=== PATIENT | female | born 1995 | race Caucasian/White ===

== ENCOUNTER → 2016-06-21 | Outpatient (CLI) | payer BC | END | disposition home or self-care (01) | LOC: C.PAPS 09:54 | PROVIDERS: ATTEND Obstetrics & Gynecology | DX: Z01.419 Encounter for gynecological examination (general) (routine) without abnormal findings (principal) ==

== ENCOUNTER 2019-10-15 10:24 | Observation (INO) ==
--- NOTE | 2019-10-12 08:38 | Anesthesiology Consultation ---
Date of Service October 12, 2019 Assessment & Plan (1) Encounter for pre-operative examination: Chart Review Chart Review: Acceptable Risk for Surgery and Patient NOT seen in Pre Admission Testing Per nursing assessment 10/10/19, pt resides in [facility]. Works in [employer] but wears mask. Traveled to [facility] but wore mask. Covid testing done 10/09/19 at [facility]= results negative History Surgery Operation Date: 10/15/19 11:50 Proposed Procedures p Bilateral Reduction Mammoplasty - Chantel Oates MD Height/Weight Height: 5 ft 8 in Weight: 72.575 kg Allergies Allergy/AdvReac Type Severity Reaction Status Date / Time No Known Allergies Allergy Verified 10/10/19 12:16 Medications Home Medications Medication Instructions Recorded Confirmed Last Taken oxycodone-acetaminophen 5 mg-325 1 tab PO Q4H PRN #18 tab 10/08/19 10/10/19 Unknown mg tablet multivitamin with minerals 1 tab PO QAM 10/10/19 10/10/19 Unknown [Hair,Skin and Nails] norethindrone-e.estradiol-iron 1 tab PO HS 10/10/19 10/10/19 Unknown Past Medical History Medical History Anxiety no meds H/O: depression no meds Vaginismus Past Family History Family History Mother Alcoholism Depression Father Alcoholism Kidney stone on left side Grandmother (Maternal) Cervical cancer Type 2 diabetes mellitus Hypertension Family history of diabetes mellitus Grandfather (Maternal) Hypertension Other No family history of adverse response to anesthesia Denies family history of Pancreatic cancer Ovarian cancer Prostate cancer Breast cancer Colorectal cancer Uterine cancer Past Surgical History Surgical History (Updated 10/12/19 @ 08:38 by Jackie Barraza RN) History of wisdom tooth extraction Nausea and vomiting after administration of anesthetic agent Social History Smoking Status: Never smoker Do You Dip or Chew Tobacco: No Hx Alcohol Use: No Hx Substance Use: No substance use type: does not use Testing Laboratory Results 10/10/19= WBC: 6.35 H/H: 12.9/37.5 PLATELETS: 196 SODIUM: 137 POTASSIUM: 4.0 CHLORIDE: 107 CO2: 27.0 BUN: 11.0 CREATININE: 1.00 GLUCOSE: 101 PT: 11.6 PTT: 28.9 INR: 1.01
[~2019-10-15 10:24] MED LIST: BUPIVACAINE 0.25% 30 ML VIAL ONE; CEFAZOLIN 2000MG 2,000 MG/15 ML SYR IV SCH; LR 15ML/HR IV SCH; MIDAZOLAM HCL 1 MG/ML 2ML VIAL ONE; fentaNYL citrate 100 MCG/2 ML VIAL ONE
[2019-10-15] MEDS ORDERED: ePHEDrine sulfate 50 MG/ML AMP IV PRN (11:20)
[2019-10-15] MEDS ORDERED: HYDROmorphone INJ 2 MG/ML SYR/VIAL IV PRN (11:20)
[2019-10-15] MEDS ORDERED: ONDANSETRON INJ 2 MG/ML 2 ML VIAL IV PRN (11:20)
[2019-10-15] MEDS ORDERED: ATROPINE SULFATE 0.1 MG/ML 10ML SYR IV PRN (11:20)
[2019-10-15] MEDS ORDERED: MIDAZOLAM HCL 1 MG/ML 2ML VIAL ONE (11:27)
[2019-10-15] MEDS ORDERED: ROCURONIUM BROMIDE 10 MG/ML 5 ML VIAL IV ONE (11:44)
[2019-10-15] MEDS ORDERED: PROPOFOL IV EMULSION 10 MG/ML 20 ML VIAL IV ONE (11:44)
[2019-10-15] MEDS ORDERED: LIDOCAINE HCL 2% 2 ML VIAL/AMP(20MG/ML) INFIL ONE (11:45)
--- NOTE | 2019-10-15 12:02 | History & Physical Bridge Note ---
Date of Service October 15, 2019 History & Physical Bridge Note I have examined the patient, reviewed the History & Physical and in the interval since the performance of the History & Physical I have noted the following changes of clinical significance: no changes noted
[2019-10-15] MEDS ORDERED: BUPIVACAINE 0.25% 30 ML VIAL ONE (12:10)
[2019-10-15] MEDS ORDERED: LIDOCAINE/EPINEPHRINE 1% 20 ML VIAL ONE (12:10)
[2019-10-15] MEDS ORDERED: fentaNYL citrate 100 MCG/2 ML VIAL ONE ×2 (12:59→15:43)
[2019-10-15] MEDS ORDERED: LIDO/EPINEPHRINE/SOD BICARB 20 ML VIAL INFIL ONE (14:33)
[2019-10-15] MEDS ORDERED: ONDANSETRON INJ 2 MG/ML 2 ML VIAL ONE (14:40)
[2019-10-15] MEDS ORDERED: GLYCOPYRROLATE 0.2 MG/ML VIAL ONE (15:34)
[2019-10-15] MEDS ORDERED: NEOSTIGMINE METHYLSULFATE 5 MG/5 ML SYR ONE (15:34)
--- NOTE | 2019-10-15 16:10 | Post Operative Brief Note ---
PG Immediate Post Op with CF Date of Surgery October 15, 2019 Pre & Post Diagnosis Operation Date: 10/15/19 11:50 Pre-Op Diagnosis: Symptomatic Bilateral Macromastia Post-Op Diagnosis: Symptomatic Bilateral Macromastia I identified the patient and participated in the time-out.: Yes Procedure Operation Date: 10/15/19 11:50 Actual Procedures p Bilateral Breast Reduction (Bilateral) - Chantel Oates MD Surgeon Chantel Oates MD Quality Rn Vero Everett PA-C Estimated Blood Loss 75 Findings Consistent with Post-Op Diagnosis Specimens Specimen Description: Fresh Specimen: A.) Left Breast Tissue - 454 grams Fresh Specimen: B.) Right Breast Tissue - 488 grams Drains Neymar-Machado Drain (x2)
--- NOTE | 2019-10-15 16:12 | Operative Report ---
PG Post Operative Report Pre & Post Diagnosis Operation Date: 10/15/19 11:50 Pre-Op Diagnosis: Symptomatic Bilateral Macromastia Post-Op Diagnosis: Symptomatic Bilateral Macromastia I identified the patient and participated in the time-out.: Yes Procedure Operation Date: 10/15/19 11:50 Actual Procedures p Bilateral Breast Reduction (Bilateral) - Chantel Oates MD Surgeon Chantel Oates MD Protective Clothing Issuer Vero Everett PA-C Estimated Blood Loss 75 Findings Consistent with Post-Op Diagnosis Specimens left breast tissue 454 grams to pathology right breast tissue 488 grams to pathology Drains JPx2 Anesthesia Type General Regional Complications none Disposition Disposition: Recovery Room Indications back, neck and shoulder pain due to macromastia Description of Procedure The risks, benefits, and alternatives of the procedure were explained to the patient who agreed and signed consent. She was identified and marked in the preoperative holding area. She was brought to the operating room where she was positioned supine and placed under general anesthesia without incident. Surgical site was prepped and draped sterilely. A time-out procedure was performed. I began with the left side. Markings were reassessed and a 7 cm pedicle was marked. 1% lidocaine with epinephrine was used to anesthetize the planned incisions. A 38 mm cookie cutter was used to circumscribe the nipple-areolar complex. The previously marked 7 cm pedicle was incised using a 15 blade scalpel and deepithelialized. I began with the medial dissection of the pedicle using electrocautery. Cautery was used to incise through dermis and breast parenchyma down to the chest wall, taking care not to undermine the pedicle during dissection. A similar procedure was undertaken on the lateral aspect of the pedicle again taking care not to undermine. Lastly, the pedicle was dissected out superiorly using electrocautery and this was carried down to the chest wall as well. I then began with excision of the medial breast tissue followed by lateral aspect of the breast tissue and surrounding keyhole incision. A 15 blade scalpel was used to make the inframammary fold incision and electrocautery was used to deepen the incision through dermis and breast parenchyma. Dissection was then carried superiorly to the level of the superior incision. Superior incision was then incised using a 15 blade scalpel and again dissected using electrocautery. This was undertaken laterally and then around the keyhole portion of the incision. Care was taken to leave some fat on the lateral pectoralis fascia in order to protect the T4 intercostal nerve. Hemostasis was achieved with electrocautery. The specimen was passed off in its entirety for weighing. Additional resection was undertaken from the superior flap in order to facilitate closure of the breast and to provide the best shape. The total resection weight of the left breast was 454 grams. The wound was irrigated with saline and hemostasis was achieved with electrocautery. 0.25% Marcaine plain was used to anesthetize the incisions as well as the pectoralis fascia. A 15 Yoruba Jim drain was brought out through a separate stab incision. The nipple-areolar complex was brought into the keyhole using 2-0 Vicryl deep dermal suture. The wound was closed first in a lateral to mid breast direction and then medial to mid breast direction using 2-0 Vicryl deep dermal sutures. Vertical limb was also approximated using 2-0 Vicryl deep dermals and the nipple-areolar complex was inset using 2-0 Vicryl deep dermal sutures. Next, the superficial dermal layer was closed using 2-0 PDO running Quill suture along the inframammary fold and 3-0 PDS interrupted dermal sutures along the vertical limb and nipple- areolar complex. Lastly 3-0 Monocryl running subcuticular suture was placed. A similar procedure was undertaken on the right side with maximal excision weight of 488 grams. Breasts were symmetric and nipple-areolar complexes were viable bilaterally following wound closure. Dermabond Prineo was applied along the inframammary fold and vertical limb and Dermabond was placed around the nipple-areolar complex. Dry dressings and a surgical bra were placed. The patient was awakened and transferred to recovery room in satisfactory condition. Vero Everett PA-C was present and scrubbed throughout the procedure and was instrumental in providing retraction during dissection of the pedicle and assisting in wound closure. I attest to the content of the Intraoperative Record and any orders documented therein. Any exceptions are noted below.
[2019-10-15] MEDS: fentaNYL citrate 100 MCG/2 ML VIAL IV PRN ×4 (16:33→17:15)
--- NOTE | 2019-10-15 16:53 | Anesthesiology Progress Note ---
Date of Service October 15, 2019 Anesthesia Post Procedure Vital Signs Vital Signs: Temp Pulse Pulse Resp BP BP Pulse Ox 10/15/19 16:50 36.4 C L 86 16 135/88 100 10/15/19 16:40 67 16 130/87 100 10/15/19 16:30 102 H 16 134/85 100 10/15/19 16:23 36.5 C 109 H 16 105/73 99 10/15/19 11:47 86 16 127/81 100 10/15/19 10:57 37.1 C 87 16 117/79 99 Pain Intensity Bilateral Chest: Pain Intensity: 2 Transfer of Care Handoff Completed per policy Notes Mental Status: alert / awake / arousable Patient Amnestic to Procedure: Yes Nausea / Vomiting: adequately controlled Pain: adequately controlled Airway Patency, RR, SpO2: stable & adequate BP & HR: stable & adequate Hydration State: stable & adequate Anesthetic Complications: no major complications apparent and Pt Satisfied with anesthetic care
[2019-10-15] MEDS ORDERED: LORazepam 0.5 MG TAB PO PRN (17:27)
[2019-10-15] MEDS ORDERED: MoRPHine SULFATE 4 MG/ML 1 ML CARP\\VIAL IV PRN (17:27)
[2019-10-15] MEDS ORDERED: OXYCODONE/ACETAMINOPHEN 5mg/325mg TAB PO PRN (17:27)
[2019-10-15] MEDS ORDERED: MoRPHine SULFATE 2 MG/ML CARP IV PRN (17:27)
[2019-10-15] MEDS ORDERED: PROMETHAZINE HCL 12.5 MG in SODIUM CHLORIDE 0.9% 50 ML IV PRN (17:27)
[2019-10-15] MEDS ORDERED: MoRPHine SULFATE 10 MG/ML CARP/VIAL IV PRN (17:27)
[2019-10-15] MEDS ORDERED: DiphenhydrAMINE HCL 50 MG/ML VIAL IV PRN (17:27)
[2019-10-15] MEDS: D5W AND 1/2NSS + 20MEQ KCL 20 MEQ/1,000 ML BAG IV SCH (18:16)
[2019-10-15] MEDS: CEFAZOLIN 2000MG 2,000 MG/15 ML SYR IV SCH (19:32)
[2019-10-15] MEDS: ACETAMINOPHEN 325 MG TAB PO PRN (19:42)
[2019-10-15] MEDS: ONDANSETRON INJ 2 MG/ML 2 ML VIAL IV PRN (19:43)
[2019-10-15] MEDS ORDERED: Nursing to Pharmacy Communication SCH (22:00)
[2019-10-15] MEDS ORDERED: PATIENT'S OWN ORAL CONTRACEPTIVE PO SCH (23:15)
[2019-10-16] MEDS: ACETAMINOPHEN 325 MG TAB PO PRN ×3 (00:06→10:51)
[2019-10-16] MEDS: OXYCODONE/ACETAMINOPHEN 5mg/325mg TAB PO PRN ×2 (02:07→13:16)
[2019-10-16] MEDS: ONDANSETRON INJ 2 MG/ML 2 ML VIAL IV PRN ×2 (02:08→13:17)
[2019-10-16] MEDS: CEFAZOLIN 2000MG 2,000 MG/15 ML SYR IV SCH (04:13)
[2019-10-16] MEDS: D5W AND 1/2NSS + 20MEQ KCL 20 MEQ/1,000 ML BAG IV SCH (07:42)
[2019-10-16] MEDS ORDERED: MULTIVITAMIN TAB PO SCH (09:00)
--- NOTE | 2019-10-16 09:10 | Surgery Progress Note ---
Date of Service October 16, 2019 Assessment & Plan (1) Breast hypertrophy: POD #1 s/p Bilateral Breast Reduction. Pt is tolerating regular diet. Pain is controlled. She does have some mild nausea, which is improving. She did request script for Zofran. Script sent to pharmacy in [place]. RAMANA drains removed today at bedside without issue. We reviewed discharge instructions. She is aware that she has a Telehealth visit tomorrow afternoon. We reviewed that she is to keep surgical bra and dressings in place until her telehealth visit. All questions answered. Patient to be discharged later today. Revi Pt does state that she is anxious and feels that her heart is racing, most like ly due to anxiety. She denies chest pain. I will order EKG. Pt to receive one time does of 0.5mg Ativan for anxiety. I will call back and check with nursing for update on patient once EKG complete. If EKG ok, then will continue with plan to discharge patient to home later. Subjective Alyssa is resting in bed- reports that her pain is ok. She has been taking Percocet as needed. She does state that she has been having some off and on nausea. She states that Zofran has been helping. In addition, she does admit to some anxiety. Feels that she is ready to go home, but is worried about having anxiety when she goes home. Physical Exam Physical Exam: On physical exam- RAMANA drains x2 with serosang drainage. Drains removed today at beside without issue. Optifoam dressings placed. Surgical dressings peeled back a bit to examine nipples. Nipples are pink and viable bilaterally. Incisions with surgical glue and tape in place. No signs of infection and no evidence of dehiscence. Surgical bra reattached. Results & Data Vital Signs (Past 12 Hours) Vital Signs Temp Pulse Pulse Resp BP Pulse Ox 10/16/19 07:17 36.8 C 68 16 108/66 98 10/16/19 03:54 37.0 C 87 14 103/66 98 10/16/19 00:03 37.1 C 73 15 123/76 98 PG Care Time/CCT Total # of Minutes Spent Total Time Spent with Patient: Total time spent is greater than 50% in coordination of care (as documented) at patient's floor/unit and/or counseling patient: Coding Level of Care Code 59424 Subseq Obs Care Lvl 1 Diagnoses Breast hypertrophy N62
[2019-10-16] MEDS ORDERED: LORazepam 0.5 MG TAB PO STA (10:22)
--- NOTE | 2019-10-16 12:21 | Electrocardiogram Report ---
Test Reason : Blood Pressure : / mmHG Vent. Rate : 070 BPM Atrial Rate : 070 BPM P-R Int : 138 ms QRS Dur : 088 ms QT Int : 400 ms P-R-T Axes : 072 065 047 degrees QTc Int : 432 ms Normal sinus rhythm Low voltage QRS Incomplete right bundle branch block Borderline ECG No previous ECGs available Confirmed by Maximiliano Miranda ([id number]) on 10/16/2019 12:20:44 PM Referred By: Chantel Oates Confirmed By:Usama Miranda
--- NOTE | 2019-10-17 09:29 | Discharge Summary ---
Date of Service October 17, 2019 Admission HPI Per Admitting Provider Please see admission H & P. Admission Exam Per Admitting Provider Please see admission H & P. Principal Diagnosis Bilateral Symptomatic Macromastia Discharge Data Allergies Allergy/AdvReac Type Severity Reaction Status Date / Time No Known Allergies Allergy Verified 10/15/19 10:52 Procedures Performed Operation Date: 10/15/19 11:50 Actual Procedures p Bilateral Breast Reduction (Bilateral) - Chantel Oates MD Ordered Studies 10/15/19 07:58 US - OR guided needle placemen Routine Hospital Course (1) Breast hypertrophy: Alyssa is a 24-year-old female with Bilateral Symptomatic Macromastia. She was taken to the OR and underwent bilateral breast reduction. There were no intraoperative complications. She was taken to recovery and transferred to med/surg for observation. On POD #1, she was feeling a bit sore, had some post- op nausea, and some anxiety. Patient had complaints of heart palpitations and EKG was ordered. EKG showed normal sinus rhythm. Heart palpitations were most likely due to patient's anxiety. She was given a 1 time dose of 0.5mg Ativan and patient had improvement in anxiety and heart palpitations resolved. She was tolerating a regular diet, ambulating in room and hallway without issue, and voiding on own. On physical exam, her vitals were stable. Her incisions were clean, dry, and intact. Nipples were pink and viable. Her drains were removed without issue at bedside and optifoam dressings were placed. Discharge instructions were reviewed with patient. She was discharged home with Telehealth visit scheduled for POD #2. All questions answered. Total Time Total Time Spent Total Time Spent (In Minutes): 10 minutes Discharge Plan Discharge Items Patient Disposition: Home - Self-Care Reason For Visit: Symptomatic Macromastia Discharge Diagnosis: Symptomatic Macromastia Activity: As commented below Non-emergency contact: Surgeon Call non-emergency contact if: you have any medication questions, your pain is not controlled, your temperature is above 101.5, your wound has increased redness and your wound has increased drainage Follow-up/Referrals: Chantel Oates MD [Physician] - (Telehealth visit is scheduled for 10/17/19) PCP,NO [Primary Care Provider] - Diet: Regular Addtl Attending Provider Instructions: ACTIVITY RECOMMENDATIONS: __Normal activities _X_No bending, lifting or straining __No driving _X_Driving allowed when you are off pain medications _X_Walking permitted __You should have help at home for ___ days DRESSINGS: __No dressings required _X_Keep surgical bra, dressings dry/in place until first office visit. Your TeleHealth visit is scheduled for tomorrow, 10/17/2019. __Remove dressings ___ and leave dressings off __Apply ice ___ days __Remove dressings and reapply garment __Apply antibiotic ointment (Bacitracin, Neosporin, etc) to wounds 3-4 times/day for 10 days BATHING: _X_Keep dressings dry _X_Sponge bathing permitted, but please remember to keep surgical dressings dry. __Showering permitted _X_No swimming, hot tubs or soaking in a tub MEDICATIONS: Resume previous medications unless instructed otherwise by your surgeon. Ok to resume control in 1 week. _X_Do not use aspirin, Motrin, Advil or Ibuprofen as these may promote bleeding. Please use Tylenol. _X_Prescription(s) provided: Prescription for post-operative pain medication provided at pre-operative visit. Please use as prescribed. Prescription for Zofran sent to pharmacy today. Please use as prescribed. SPECIAL CARE INSTRUCTIONS: * It is normal to have a mild fever after surgery. If your temperature is higher than 101.5 degrees F, please call the office at [phone]. * Constipation is a typical side effect of pain medication. An [id number] stool softener will help relieve this. * Leaking around surgical drains may occur and should not cause concern. Sometimes these drains become clogged. If this happens, remove the bulb and milk the clot out of the tube, then replace the bulb. * Drainage from wounds after liposuction is normal and should be expected. Garments will become soiled. You should protect furniture and bedding. This drainage should mostly subside within 2-3 days. Leave garments in place unless instructed to remove them. * If you have unusual drainage from a wound or are concerned you have an infection or have any questions or concerns, please call the office at [phone]. FOLLOW UP VISIT: Your TeleHealth visit is scheduled for tomorrow, 10/17/2019. Please call our office at [phone] with any questions or concerns. Pending Studies at Discharge: Yes Studies:: Pathology report. Stand-Alone Forms: My [facility], Opioid Pain Management, Smoking Cessation Medications and DC Order Prescriptions: New ondansetron HCl [Zofran] 4 mg tablet 4 mg PO Q6H PRN (Reason: nausea and vomiting) 3 Days Qty: 12 RF: 0 lorazepam [Ativan] 0.5 mg tablet 0.5 mg PO Q8H PRN (Reason: anxiety) Qty: 3 RF: 0 Continued oxycodone-acetaminophen [Endocet] 5-325 mg tablet 1 tab PO Q4H PRN (Reason: pain) Qty: 18 RF: 0 norethindrone-e.estradiol-iron 1.5 mg-30 mcg (21)/75 mg (7) tablet 1 tab PO HS RF: 0 multivitamin with minerals [Hair,Skin and Nails] Tablet 1 tab PO QAM RF: 0 Discharge Orders: Discharge Order (Routine); Ordered 10/16/19 Ordered By: Anum Abraham Admission Data Admit Date/Time: 10/15/19 16:39 Attending Provider: Chantel Oates Admit Provider: Chantel Oates Primary Care Provider: PCP,NO Other Interventions: Discharge Summary Assessment (RN) Last Done: 10/16/19 12:11 DC Date/Time DO NOT enter until pt leaves facility: 10/16/19 14:13 Coding Level of Care Code 28699 OBS Care - Discharge Diagnoses Breast hypertrophy N62
== END 2019-10-16 14:13 | disposition home or self-care (01) ==
LOC: 3N 10:24 → ASU 10:24
DX: N62 Hypertrophy of breast